=== PATIENT | male | born 1955 | race Caucasian/White ===

== ENCOUNTER 2018-01-28 00:12 | Emergency (ER) | payer SELFPAY ==
[~2018-01-28] VITALS: Ht 177.8 cm; Wt 68.0 kg
[2018-01-28] MEDS ORDERED: HYDROcodone/APAP 5/325 TABLET PO ONE (01:00)
[2018-01-28] MEDS ORDERED: HYDROcodone/APAP 5/325 TABLET ONE (01:01)
[2018-01-28 02:59] VITALS: BP 127/73
== END 2018-01-28 03:02 | disposition home or self-care (01) ==
LOC: ED 02:56
DX: M25.562 Pain in left knee (principal); M17.31 Unilateral post-traumatic osteoarthritis, right knee; G20 Parkinson's disease
CPT/HCPCS: 99284

== ENCOUNTER 2018-08-20 11:20 | Emergency (ER) | payer OTHER ==
[~2018-08-20] VITALS: Ht 177.8 cm; Wt 65.0 kg
[2018-08-20 12:13] LABS: BASOPHILS # (AUTO) 0.03 x10^3/uL (0-0.1); BASOPHILS % (AUTO) 0 % (0-1); EOSINOPHILS # (AUTO) 0.24 x10^3/uL (0-0.4); EOSINOPHILS % (AUTO) 4 % (1-7); LYMPHOCYTES # (AUTO) 0.89 x10^3/uL (1-3.4); LYMPHOCYTES % (AUTO) 15 % (22-44); MD NO; MEAN CORPUSCULAR HEMOGLOBIN 31.5 pg (27.5-34.5); MEAN CORPUSCULAR HGB CONC 33.9 g/dL (33.2-36.2); MEAN CORPUSCULAR VOLUME 92.9 fL (81-97); MEAN PLATELET VOLUME 7.7 fL (7.4-10.4); MONOCYTES # (AUTO) 0.58 x10^3/uL (0.2-0.8); MONOCYTES % (AUTO) 10 % (2-9); NEUTROPHILS # (AUTO) 4.27 x10^3/uL (1.8-6.8); NEUTROPHILS % (AUTO) 71 % (42-75); PLATELET COUNT 302 x10^3/uL (130-400); RED BLOOD COUNT 4.54 x10^6/uL (4.38-5.82)
[2018-08-20 12:26] LABS: PROTHROMBIN TIME 10.4 Seconds (9.6-11.5)
[2018-08-20 12:31] LABS: ALANINE AMINOTRANSFERASE 19 U/L (12-78); ALBUMIN 3.7 g/dL (3.4-5.0); ANION GAP 9 mmol/L (5-15); CALCIUM 9.8 mg/dL (8.5-10.1); CHLORIDE 110 mmol/L (98-107); CREATININE 0.84 mg/dL (0.7-1.3)
[2018-08-20 12:33] LABS: ALKALINE PHOSPHATASE 87 U/L (45-117); BILIRUBIN,TOTAL 0.4 mg/dL (0.2-1.0); TOTAL PROTEIN 7.6 g/dL (6.4-8.2)
[2018-08-20 13:41] LABS: MICROSCOPIC NOT IND
[2018-08-20 13:55] LABS: CULTURE INDICATED? NO
[2018-08-20 16:03] VITALS: BP 138/73
== END 2018-08-20 16:16 | disposition home or self-care (01) ==
LOC: ED 13:55
DX: R30.0 Dysuria (principal); G20 Parkinson's disease
CPT/HCPCS: 36415; 80053; 81003; 85025; 85610; 85730; 99284